=== PATIENT | male | born 1960 | race Caucasian/White ===

== ENCOUNTER 2019-09-06 06:23 | Inpatient (IN) | payer BC, OTHER ==
[~2019-09-06] VITALS: Ht 180.3 cm; Wt 104.2 kg
[2019-09-06 06:46] LABS: Basophils # (auto) 0 10 ^3/uL (0-0.2); Basophils % (auto) 0.4 % (0.0-2.0); Eosinophils # (auto) 0.2 10 ^3/uL (0-0.8); Eosinophils % (auto) 1.7 % (0.0-7.0); Hematocrit 49.5 % (41.0-53.0); Hemoglobin 16.7 g/dL (13.5-17.5); Lymphocytes # (auto) 1.6 10 ^3/uL (0.4-5.4); Lymphocytes % (auto) 16.3 % (10.0-50.0); Mean Corpuscular Hemoglobin 32.5 pg (28.0-32.0); Mean Corpuscular Hgb Conc. 33.7 g/dL (32.0-36.0); Mean Corpuscular Volume 96.3 fL (80.0-100.0); Monocytes # (auto) 0.9 10 ^3/uL (0-1.3); Neutrophils # (auto) 7.3 10 ^3/uL (1.6-8.6); Neutrophils % (auto) 72.6 % (37.0-80.0); Platelet Count (auto) 245 10^3/uL (140-450); Red Blood Cells 5.14 10^6/uL (4.5-5.90); Red Cell Distribution Width 13.8 % (11.8-14.3); White Blood Cell 10.1 10^3/uL (4.4-10.8)
[2019-09-06] MEDS ORDERED: MORPHINE SULF INJ 2 MG/ML SYRINGE 1ML ONE (06:54)
[2019-09-06] MEDS ORDERED: HEPARIN SODIUM (PORCINE) 5000 UNITS/ML 1ML VIAL ONE ×2 (06:54→07:22)
[2019-09-06] MEDS ORDERED: HEPARIN SODIUM (PORCINE) 5000 UNITS/ML 1ML VIAL IV ONE (07:00)
[2019-09-06 07:02] LABS: INR 0.99 (0.9-1.15); Partial Thromboplastin Time 27.1 sec (23.64-32.05)
[2019-09-06 07:09] LABS: Albumin 3.8 g/dL (3.4-5.0); Calcium 8.5 mg/dL (8.5-10.1); Magnesium 2.4 mg/dL (1.6-2.6); Potassium 3.8 mmol/L (3.5-5.1)
[2019-09-06 07:15] LABS: BUN/Creatinine Ratio 20.6; Bilirubin, Total 0.6 mg/dL (0.2-1.0); Total Protein 7.3 g/dL (6.4-8.2)
[2019-09-06] MEDS ORDERED: MORPHINE SULF INJ 2 MG/ML SYRINGE 1ML IV ONE (07:15)
[2019-09-06] MEDS ORDERED: IOHEXOL 350 MG/ML 100ML IJ ONE ×3 (07:16→08:26)
[2019-09-06] MEDS ORDERED: LIDOCAINE 2%HCL (LOCAL ANESTH.) INJ 20ML MDV ONE (07:16)
[2019-09-06] MEDS ORDERED: HEPARIN IN NS 1000Units/500mL 1,500 ML ONE (07:16)
[2019-09-06] MEDS ORDERED: fentaNYL CITRATE 100 MCG/2 ML VL ONE (07:21)
[2019-09-06] MEDS ORDERED: VERAPAMIL 2.5MG/ML INJ 2ML VIAL IV ONE (07:21)
[2019-09-06] MEDS ORDERED: MIDAZOLAM HCL 1MG/1ML-2 ML VIAL ONE (07:21)
[2019-09-06] MEDS ORDERED: ANGIOMAX 250 MG VIAL IV ONE ×2 (07:21→08:35)
[2019-09-06] MEDS ORDERED: NITROGLYCERIN 50MG/250ML 250 ML IV ONE (07:22)
[2019-09-06] MEDS ORDERED: SODIUM CHL 0.9% 50 ML ONE ×2 (07:22→08:35)
[2019-09-06] MEDS ORDERED: EPTIFIBATIDE INJ (2MG/ML) 10ML VIAL IV ONE (08:00)
[2019-09-06] MEDS ORDERED: TICAGRELOR 90 MG TAB ONE (08:31)
[2019-09-06] MEDS ORDERED: ONDANSETRON HCL 4 MG/2 ML VIAL IV PRN (09:15)
[2019-09-06] MEDS ORDERED: MORPHINE SULF INJ 2 MG/ML SYRINGE 1ML IV PRN (09:15)
[2019-09-06] MEDS ORDERED: SOD CHL 0.45% 1,000 ML IV ONE (09:15)
[2019-09-06] MEDS ORDERED: NITROGLYCERIN 0.4 MG SL TAB SL PRN (09:15)
[2019-09-06] MEDS ORDERED: HYDROcodone-ACET 5/325MG TAB PO PRN (09:15)
[2019-09-06] MEDS: TICAGRELOR 90 MG TAB PO SCH ×2 (10:00→21:55)
[2019-09-06] MEDS ORDERED: METOPROLOL TARTRATE 25 MG TAB PO SCH ×2 (10:00)
[2019-09-06] MEDS: ASPirin 81 mg TAB PO SCH (10:00)
--- NOTE | 2019-09-06 10:11 | NUR ---
Report Received report from Paralegal RNCastro.
--- NOTE | 2019-09-06 10:28 | NUR ---
Patient Arrived Patient arrived to unit. No signs of distress at this time, patient is AOx4, respirations even and unlabored, 2L nasal cannula. Safety precautions in place. Incision site is soft with no sign of hematoma at this time, dressing is dry and intact, will continue to monitor. Per Senior Sas Developer Rn, patient will be able to stand at 10:45.
[2019-09-06 10:46] LABS: Basophils # (auto) 0 10 ^3/uL (0-0.2); Basophils % (auto) 0.3 % (0.0-2.0); Eosinophils # (auto) 0 10 ^3/uL (0-0.8); Eosinophils % (auto) 0.3 % (0.0-7.0); Hematocrit 48.9 % (41.0-53.0); Hemoglobin 16.3 g/dL (13.5-17.5); Lymphocytes % (auto) 9.7 % (10.0-50.0); Mean Corpuscular Hemoglobin 32.3 pg (28.0-32.0); Mean Corpuscular Hgb Conc. 33.2 g/dL (32.0-36.0); Mean Corpuscular Volume 97.2 fL (80.0-100.0); Monocytes # (auto) 0.6 10 ^3/uL (0-1.3); Monocytes % (auto) 5.6 % (0.0-12.0); Neutrophils # (auto) 8.7 10 ^3/uL (1.6-8.6); Neutrophils % (auto) 84.1 % (37.0-80.0); Nucleated Red Blood Cells % 0.1 %; Platelet Count (auto) 243 10^3/uL (140-450); Red Blood Cells 5.03 10^6/uL (4.5-5.90); Red Cell Distribution Width 13.6 % (11.8-14.3); White Blood Cell 10.3 10^3/uL (4.4-10.8)
[2019-09-06 10:49] VITALS: BP 146/84
[2019-09-06] MEDS: PANTOPRAZOLE 40 MG/10 ML VIAL INJ IV SCH (11:15)
--- NOTE | 2019-09-06 11:36 | NUR ---
Critical Lab Values Received call from Namita regarding troponin levels. Will notify
--- NOTE | 2019-09-06 11:38 | NUR ---
Called to report critical lab values.
--- NOTE | 2019-09-06 11:49 | NUR ---
Left message Left message with Sarah. Per Sarah singh MD.
[2019-09-06 12:35] VITALS: BP 163/93
[2019-09-06] MEDS ORDERED: LOSA25TA38 PO (13:11)
--- NOTE | 2019-09-06 13:20 | NUR ---
Left message with Dr. Jose Marks regarding labs. Addendum: 09/06/19 at 1325 by SHAHRZAD ALVAREZ RN RN Patient shows no signs of distress at this time, denies any chest pain. HR 62 BP 121/85. Will continue to monitor.
--- NOTE | 2019-09-06 13:55 | NUR ---
Run of V Tach Patient had a run of v tach 10 beats. VS are as follows:BP 144/85, HR 71, SpO2 96% on room air, RR 18. Patient shows no signs of distress, denies chest pain at this time. Will continue to monitor.
--- NOTE | 2019-09-06 14:00 | NUR ---
MD Notified MD aware of run of v tach and most recent set of vital signs. New orders received, will continue to monitor.
--- NOTE | 2019-09-06 15:11 | NUR ---
Notified Notified Dr. Jose Marks regarding troponin levels.
--- NOTE | 2019-09-06 15:41 | NUR ---
Notified MD Notified MD of run of V tach 5 beats. VS are as follows: 125/85, HR 75, RR 16, SpO2 95% on room air.
--- NOTE | 2019-09-06 16:04 | NUR ---
New orders received.
[2019-09-06] MEDS ORDERED: AMIODARONE HCL 150 MG in D5W 5% 100 ML IV ONE (16:15)
[2019-09-06 16:58] VITALS: BP 125/85
[2019-09-06] MEDS ORDERED: MAGNESIUM SULFATE 1GM/100ML 100 ML IV SCH (17:00)
[2019-09-06 17:20] VITALS: BP 146/89
--- NOTE | 2019-09-06 17:20 | NUR ---
Amiodarone Completed Per MD orders, amiodarone administered, see EMAR. Starting vital signs: RR 18, 100% SpO2 on room air, HR 74bpm, BP 147/84. End of Infusion Vital Signs: RR 18, Spo2 97% on room air, HR 75 bpm, BP 146/89. No signs of distress at this time, respirations even and unlabored. Safety precautions in place, will continue to monitor.
--- NOTE | 2019-09-06 17:28 | NUR ---
Discharge Discharge instructions given as ordered. Encourage to follow up with PMD as instructed. All questions and concerns addressed. Patient verbalized understanding. Medication reconciliation form completed and copy given to patient. IV removed with catheter intact, pressure dressing applied. Telemetry unit returned to ICU. Patient taken to vehicle via wheelchair with all personal belongings, accompanied by staff. No distress noted at time of departure. Patient received information regarding post discharge follow up appointment and home HD program/clinic training information per Dr. Hammond request-also given phone number provided by [phone] and instructed to show up 30 minutes early per PATRICK Kuhn instruction. Addendum: 09/06/19 at 1736 by SHAHRZAD ALVAREZ RN RN WRONG PATIENT
[2019-09-06] MEDS: MAGNESIUM SULFATE 1GM/100ML 100 ML IV SCH ×3 (19:19→21:55)
--- NOTE | 2019-09-06 19:19 | NUR ---
Closing Note Report given to [facility] RN, [place]. Patient currently sitting up in bed resting with eyes closed, patient is easy to arouse, respirations even and unlabored on 2L nasal cannula. Safety precautions in place, no signs of distress.
--- NOTE | 2019-09-06 19:20 | NUR ---
OPENING NOTE Received report from day shift RN. Patient is A&O X's 4 with no s/s of distress noted and reports no pain. Right groin gauze is C/D/I and area is soft to touch. Patient denies pain. Educated patient on POC and to use call light when in need of assistance. Patient verbalized understanding. Bed is in lowest/locked position with side rails up X's 2 and call light is within reach of patient. Will continue care.
[2019-09-06] MEDS: ATORVASTATIN 20 MG TAB PO SCH (21:56)
[2019-09-06] MEDS: AMIODARONE HCL 200 MG TAB PO SCH (21:56)
[2019-09-06] MEDS: METOPROLOL TARTRATE 25 MG TAB PO SCH (21:57)
[2019-09-06 22:00] VITALS: BP 130/77
[2019-09-07 04:49] VITALS: BP 116/65
[2019-09-07 05:00] VITALS: BP 121/72
[2019-09-07 06:25] LABS: Calcium 8.3 mg/dL (8.5-10.1)
[2019-09-07 06:45] LABS: BUN/Creatinine Ratio 16.5
--- NOTE | 2019-09-07 07:30 | NUR ---
RECEIVED REPORT FROM NIGHT NURSE. PATIENT RESTING IN BED, NO DISTRESS NOTED. WILL CONTINUE TO MONITOR.
--- NOTE | 2019-09-07 07:34 | NUR ---
CRITICAL TROPONIN 65.5. MD aware of high troponin levels. Value decreasing. Day shift RN aware.
--- NOTE | 2019-09-07 07:36 | NUR ---
CLOSING NOTE Patient is currently sitting up in bed on the phone. Patient shows no s/s of distress and reports no pain. safety precautions are in place.
[2019-09-07 09:00] VITALS: BP 128/73
[2019-09-07] MEDS: TICAGRELOR 90 MG TAB PO SCH ×2 (11:42→22:18)
[2019-09-07] MEDS: PANTOPRAZOLE 40 MG/10 ML VIAL INJ IV SCH (11:42)
[2019-09-07] MEDS: ASPirin 81 mg TAB PO SCH (11:43)
[2019-09-07] MEDS: AMIODARONE HCL 200 MG TAB PO SCH ×2 (11:43→22:17)
[2019-09-07] MEDS: METOPROLOL TARTRATE 25 MG TAB PO SCH ×2 (11:43→22:18)
[2019-09-07 13:00] VITALS: BP 117/73
[2019-09-07 17:00] VITALS: BP 97/68
--- NOTE | 2019-09-07 19:45 | NUR ---
OPENING NOTE Received report from day shift RN. Patient is A&O X's 4 with no s/s of distress and reports no pain. Educated patient on POC and to use call light when in need of assistance. Patient verbalized understanding. Bed is in lowest/locked position with side rails up X's 2 and call light is within reach of patient. Will continue care. Patient to be NPO at midnight. Patient verbalized understanding.
[2019-09-07 22:00] VITALS: BP 129/76
[2019-09-07] MEDS: ATORVASTATIN 20 MG TAB PO SCH (22:17)
--- NOTE | 2019-09-08 | NUR ---
PATIENT NPO Patient verbalized understanding. Fluids removed from bedside table
[2019-09-08 06:00] VITALS: BP 121/74
--- NOTE | 2019-09-08 07:30 | NUR ---
OPENING SHIFT NOTE ASSUMED CARE OF PATIENT AWAKE AND ALERT. NO S/S OF DISTRESS NOTED OR COMPLAINTS OF PAIN. PATIENT UPDATED ON POC FOR THE DAY AND ALL QUESTIONS ANSWERED. BED IS IN LOWEST, LOCKED POSITION WITH SIDE RAILS UP X2 AND CALL LIGHT WITHIN REACH. WILL CONTINUE TO MONITOR Q1H AND PRN.
--- NOTE | 2019-09-08 08:00 | NUR ---
OFF UNIT PATIENT TAKEN TO SOIL FIELD TECHNICIAN FOR LHC PROCEDURE. NO S/S OF DISTRESS NOTED AT TIME OF DEPARTURE.
[2019-09-08] MEDS ORDERED: HEPARIN SODIUM (PORCINE) 5000 UNITS/ML 1ML VIAL ONE (08:30)
[2019-09-08] MEDS ORDERED: VERAPAMIL 2.5MG/ML INJ 2ML VIAL IV ONE (08:30)
[2019-09-08] MEDS ORDERED: ANGIOMAX 250 MG VIAL IV ONE ×2 (08:30→09:31)
[2019-09-08] MEDS ORDERED: fentaNYL CITRATE 100 MCG/2 ML VL ONE (08:31)
[2019-09-08] MEDS ORDERED: MIDAZOLAM HCL 1MG/1ML-2 ML VIAL ONE (08:31)
[2019-09-08] MEDS ORDERED: NITROGLYCERIN 50MG/250ML 250 ML IV ONE (08:44)
[2019-09-08 08:58] VITALS: BP 110/66
[2019-09-08] MEDS ORDERED: SODIUM CHL 0.9% 50 ML ONE (09:31)
[2019-09-08] MEDS ORDERED: ASPirin 81 mg TAB ONE (09:55)
[2019-09-08] MEDS ORDERED: TICAGRELOR 90 MG TAB ONE (09:56)
[2019-09-08] MEDS: PANTOPRAZOLE 40 MG/10 ML VIAL INJ IV SCH (10:00)
[2019-09-08] MEDS: AMIODARONE HCL 200 MG TAB PO SCH ×2 (10:00→21:32)
[2019-09-08] MEDS: METOPROLOL TARTRATE 25 MG TAB PO SCH ×2 (10:00→21:32)
[2019-09-08] MEDS: ASPirin 81 mg TAB PO SCH (10:09)
[2019-09-08] MEDS: TICAGRELOR 90 MG TAB PO SCH ×2 (10:09→21:33)
[2019-09-08] MEDS ORDERED: IOHEXOL 350 MG/ML 100ML IJ ONE (10:16)
[2019-09-08] MEDS ORDERED: LIDOCAINE 2%HCL (LOCAL ANESTH.) INJ 20ML MDV ONE (10:16)
--- NOTE | 2019-09-08 12:15 | NUR ---
RETURN TO UNIT PATIENT BROUGHT BACK UP FROM SUPERINTENDENT PIER. NO S/S OF DISTRESS NOTED. PATIENT HAS VASCBAND TO RIGHT WRIST. MINIMAL BLEEDING NOTED AT SITE, NO BRUISING. PATIENT HAS FULL ROM, SENSATION, AND CIRCULATION OF RIGHT HAND. SUPERINTENDENT PIER RN REMOVED 4L AIR BEFORE BRINGING PATIENT BACK TO HIS ROOM. WILL CONTINUE TO MONITOR.
[2019-09-08 13:00] VITALS: BP 116/73
--- NOTE | 2019-09-08 14:30 | NUR ---
VASCBAND VASCBAND REMOVED AFTER GRADUAL DEFLATION OF AIR. NO HEMATOMA OR OOZING NOTED AT SITE. CLEAR, OCCLUSIVE DRESSING APPLIED. WILL CONTINUE TO MONITOR.
[2019-09-08 17:00] VITALS: BP 123/80
--- NOTE | 2019-09-08 19:00 | NUR ---
OPENING NOTE Received report from day shift RN. Patient is A&O X's 4 with no s/s of distress and reports no pain. Educated patient on POC and to use call light when in need of assistance. Patient verbalized understanding. Dressing to right wrist and right groin are both C/D/I. Educated patient not to apply excessive pressure with wrists. Patient verbalized understanding. Bed is in lowest/locked position with side rails up X's 2 and call light is within reach of patient. Will continue care.
[2019-09-08] MEDS: ATORVASTATIN 20 MG TAB PO SCH (21:33)
[2019-09-08 22:00] VITALS: BP 120/82
[2019-09-09 05:00] VITALS: BP 99/69
[2019-09-09] MEDS ORDERED: CLOPIDOGREL 300 MG TAB PO ONE (08:00)
--- NOTE | 2019-09-09 08:00 | NUR ---
Opening Shift Note Assumed care of patient, awake, alert, and oriented. No S/S of distress/SOB or pain. Bed in lowest/locked position, bed rails upx2, call light within reach. Instructed on POC and to call for assist PRN. Will continue to monitor for changes Q1hr and PRN.
[2019-09-09] MEDS: TICAGRELOR 90 MG TAB PO SCH (08:43)
[2019-09-09 09:00] VITALS: BP 109/68
[2019-09-09] MEDS: PANTOPRAZOLE 40 MG/10 ML VIAL INJ IV SCH (09:23)
[2019-09-09] MEDS: METOPROLOL TARTRATE 25 MG TAB PO SCH (09:24)
[2019-09-09] MEDS: ASPirin 81 mg TAB PO SCH (09:24)
[2019-09-09] MEDS: AMIODARONE HCL 200 MG TAB PO SCH (09:24)
[2019-09-09 13:00] VITALS: BP 124/80
--- NOTE | 2019-09-09 15:24 | NUR ---
Discharge instructions given as ordered. Encourage to follow up with PMD as instructed. All questions and concerns addressed. Patient verbalized understanding. IV removed with catheter intact, pressure dressing applied. Telemetry unit returned to ICU. Patient taken to vehicle via wheelchair with all personal belongings, accompanied by staff . No distress noted at time of departure.
== END 2019-09-09 15:30 | disposition home or self-care (01) | DRG 247 ==
LOC: EDBD 06:23 → ER 06:23 → CATH 1 07:41 → TELE-WESTW 07:42
PROVIDERS: ADMIT Specialist; ATTEND Specialist
PROC: 4A023N7 Measurement of Cardiac Sampling and Pressure, Left Heart, Percutaneous Approach (ICD-10-PCS; principal; 2019-09-06)
PROC: 02C13ZZ Extirpation of Matter from Coronary Artery, Two Arteries, Percutaneous Approach (ICD-10-PCS; 2019-09-06)
PROC: 027034Z Dilation of Coronary Artery, One Artery with Drug-eluting Intraluminal Device, Percutaneous Approach (ICD-10-PCS; 2019-09-06)
PROC: 3E07317 Introduction of Other Thrombolytic into Coronary Artery, Percutaneous Approach (ICD-10-PCS; 2019-09-06)
PROC: B41F1ZZ Fluoroscopy of Right Lower Extremity Arteries using Low Osmolar Contrast (ICD-10-PCS; 2019-09-06)
PROC: B2111ZZ Fluoroscopy of Multiple Coronary Arteries using Low Osmolar Contrast (ICD-10-PCS; 2019-09-06)
PROC: 02703ZZ Dilation of Coronary Artery, One Artery, Percutaneous Approach (ICD-10-PCS; 2019-09-06)
PROC: 027034Z Dilation of Coronary Artery, One Artery with Drug-eluting Intraluminal Device, Percutaneous Approach (ICD-10-PCS; 2019-09-08)
PROC: 4A023N7 Measurement of Cardiac Sampling and Pressure, Left Heart, Percutaneous Approach (ICD-10-PCS; 2019-09-08)
PROC: B2111ZZ Fluoroscopy of Multiple Coronary Arteries using Low Osmolar Contrast (ICD-10-PCS; 2019-09-08)
PROC: 03HY32Z Insertion of Monitoring Device into Upper Artery, Percutaneous Approach (ICD-10-PCS; 2019-09-08)
DX: I21.19 ST elevation (STEMI) myocardial infarction involving other coronary artery of inferior wall (principal); I47.2 Ventricular tachycardia; I10 Essential (primary) hypertension; Z82.49 Family history of ischemic heart disease and other diseases of the circulatory system
CPT/HCPCS: 36415; 71045; 75710; 80048; 80053; 83735; 83880; 84484; 85025; 85610; 85730; 86850; 86900; 86901; 92924; 92928; 92933; 92975; 93005; 93452; 93458; 96365; 99152; 99153; C1874; C9113; G0378; J2250; J7060

== ENCOUNTER 2021-07-03 16:17 | Inpatient (IN) | payer BC ==
[~2021-07-03] VITALS: Ht 182.9 cm; Wt 96.7 kg
[~2021-07-03 16:17] MED LIST: LOSA25TA38 PO
[2021-07-03] MEDS ORDERED: PANTOPRAZOLE 40 MG/10 ML VIAL INJ IV ONE (16:45)
[2021-07-03 18:18] LABS: Basophils # (auto) 0 10 ^3/uL (0-0.2); Basophils % (auto) 0.3 % (0.0-2.0); Eosinophils # (auto) 0.1 10 ^3/uL (0-0.8); Eosinophils % (auto) 0.4 % (0.0-7.0); Hematocrit 26.6 % (41.0-53.0); Lymphocytes # (auto) 1.5 10 ^3/uL (0.4-5.4); Lymphocytes % (auto) 9.4 % (10.0-50.0); Mean Corpuscular Hemoglobin 32.6 pg (28.0-32.0); Mean Corpuscular Hgb Conc. 34.1 g/dL (32.0-36.0); Mean Corpuscular Volume 95.6 fL (80.0-100.0); Monocytes # (auto) 0.8 10 ^3/uL (0-1.3); Monocytes % (auto) 5.1 % (0.0-12.0); Neutrophils # (auto) 13.3 10 ^3/uL (1.6-8.6); Neutrophils % (auto) 84.8 % (37.0-80.0); Red Blood Cells 2.78 10^6/uL (4.5-5.90); Red Cell Distribution Width 13.2 % (11.8-14.3); White Blood Cell 15.7 10^3/uL (4.4-10.8)
[2021-07-03 18:35] LABS: Albumin 2.8 g/dL (3.4-5.0); BUN/Creatinine Ratio 46.9; Calcium 8.2 mg/dL (8.5-10.1); Magnesium 2.1 mg/dL (1.6-2.6); Potassium 3.5 mmol/L (3.5-5.1)
[2021-07-03 18:38] LABS: Bilirubin, Total 0.4 mg/dL (0.2-1.0); Total Protein 5.4 g/dL (6.4-8.2)
[2021-07-03 18:41] LABS: INR 1.05 (0.9-1.15); Partial Thromboplastin Time 21.5 sec (23.6-33.0)
[2021-07-04] MEDS ORDERED: ONDANSETRON HCL 4 MG/2 ML VIAL IV PRN (01:00)
[2021-07-04] MEDS: D5W/SOD CHLO 0.9% 1,000 ML IV SCH ×3 (01:19→21:42)
[2021-07-04 01:54] LABS: Hematocrit 24.5 % (41.0-53.0); Hemoglobin 8.5 g/dL (13.5-17.5)
[2021-07-04] MEDS: PANTOPRAZOLE 40 MG/10 ML VIAL INJ IV SCH ×2 (10:00→21:24)
[2021-07-04 12:00] VITALS: BP 110/66
[2021-07-04] MEDS ORDERED: ATOR-47 PO (12:41)
[2021-07-04] MEDS ORDERED: ASPI1TAB20 PO (12:41)
[2021-07-04] MEDS ORDERED: METO25TA5 PO (12:42)
[2021-07-04] MEDS ORDERED: CLOP75TA70 PO (12:42)
[2021-07-04] MEDS ORDERED: PANT1INJ3 IV (12:43)
[2021-07-04 13:00] VITALS: BP 107/62
[2021-07-04 16:57] VITALS: BP 116/63
[2021-07-04] MEDS: SUCRALFATE 1 GM TAB PO SCH ×2 (17:03→21:24)
[2021-07-04 22:00] VITALS: BP 114/64
[2021-07-05 05:00] VITALS: BP 113/72
[2021-07-05 05:28] LABS: Urine Bacteria NONE SEEN /hpf (None Seen); Urine Blood Negative /uL (Negative); Urine Specific Gravity 1.015 (1.001-1.035); Urine WBC 3 /hpf (0 - 3)
[2021-07-05 06:47] LABS: Basophils # (auto) 0 10 ^3/uL (0-0.2); Eosinophils # (auto) 0.2 10 ^3/uL (0-0.8); Eosinophils % (auto) 2.7 % (0.0-7.0); Monocytes # (auto) 0.5 10 ^3/uL (0-1.3); Nucleated Red Blood Cells % 0.1 %
[2021-07-05 06:50] LABS: Basophils % (auto) 0.3 % (0.0-2.0); Hematocrit 21.9 % (41.0-53.0); Hemoglobin 7.8 g/dL (13.5-17.5); Lymphocytes # (auto) 1.8 10 ^3/uL (0.4-5.4); Lymphocytes % (auto) 27.8 % (10.0-50.0); Mean Corpuscular Hemoglobin 33.9 pg (28.0-32.0); Mean Corpuscular Hgb Conc. 35.5 g/dL (32.0-36.0); Mean Corpuscular Volume 95.5 fL (80.0-100.0); Monocytes % (auto) 7.4 % (0.0-12.0); Neutrophils % (auto) 61.8 % (37.0-80.0); Red Cell Distribution Width 13.4 % (11.8-14.3); White Blood Cell 6.5 10^3/uL (4.4-10.8)
[2021-07-05] MEDS: SUCRALFATE 1 GM TAB PO SCH ×4 (07:00→21:34)
[2021-07-05 07:02] LABS: Potassium 3.5 mmol/L (3.5-5.1)
[2021-07-05 07:10] LABS: Albumin 2.5 g/dL (3.4-5.0); BUN/Creatinine Ratio 16.5; Bilirubin, Total 0.4 mg/dL (0.2-1.0); Calcium 7.9 mg/dL (8.5-10.1); Total Protein 4.8 g/dL (6.4-8.2)
[2021-07-05] MEDS ORDERED: LIDOCAINE VISCOUS 2% 15ML UD ONE (08:29)
[2021-07-05] MEDS ORDERED: diphenhdrAMINE HCL 50 MG/1 ML VL ONE (08:29)
[2021-07-05] MEDS ORDERED: fentaNYL CITRATE 100 MCG/2 ML VL ONE (08:29)
[2021-07-05] MEDS ORDERED: MIDAZOLAM HCL 5 MG/ML-1ML VIAL ONE (08:29)
[2021-07-05] MEDS ORDERED: SODIUM CHLORIDE LOCK 10 ML ONE (08:29)
[2021-07-05 09:00] VITALS: BP 111/69
[2021-07-05] MEDS: PANTOPRAZOLE 40 MG/10 ML VIAL INJ IV SCH ×2 (09:27→21:34)
[2021-07-05 13:00] VITALS: BP 113/62
[2021-07-05 22:00] VITALS: BP 114/70
[2021-07-06 05:00] VITALS: BP 114/72
[2021-07-06 05:49] LABS: Hematocrit 21.2 % (41.0-53.0)
[2021-07-06 05:53] LABS: Hemoglobin 7.7 g/dL (13.5-17.5)
[2021-07-06] MEDS: SUCRALFATE 1 GM TAB PO SCH ×2 (06:50→12:37)
[2021-07-06 09:00] VITALS: BP 130/77
[2021-07-06] MEDS: PANTOPRAZOLE 40 MG/10 ML VIAL INJ IV SCH (10:10)
[2021-07-06] MEDS ORDERED: MET25T PO (11:48)
[2021-07-06] MEDS ORDERED: SUCR1TAB22 PO (11:48)
[2021-07-06] MEDS ORDERED: PANT40TA2 PO (11:48)
[2021-07-06 13:00] VITALS: BP 123/71
== END 2021-07-06 14:40 | disposition home or self-care (01) | DRG 380 ==
LOC: EDBD 16:17 → ER 16:17 → OVERFLOW 07-04 00:56 → WEST WING 07-04 08:45
PROVIDERS: ADMIT Nurse Practitioner; ATTEND Internal Medicine
PROC: 0DB68ZX Excision of Stomach, Via Natural or Artificial Opening Endoscopic, Diagnostic (ICD-10-PCS; 2021-07-05)
PROC: 0DB98ZX Excision of Duodenum, Via Natural or Artificial Opening Endoscopic, Diagnostic (ICD-10-PCS; principal; 2021-07-05 12:40)
DX: K22.11 Ulcer of esophagus with bleeding (principal); E43 Unspecified severe protein-calorie malnutrition; R65.10 Systemic inflammatory response syndrome (SIRS) of non-infectious origin without acute organ dysfunction; D50.0 Iron deficiency anemia secondary to blood loss (chronic); K29.91 Gastroduodenitis, unspecified, with bleeding; K29.71 Gastritis, unspecified, with bleeding; I10 Essential (primary) hypertension; I25.10 Atherosclerotic heart disease of native coronary artery without angina pectoris; K44.9 Diaphragmatic hernia without obstruction or gangrene; Z20.822 Contact with and (suspected) exposure to COVID-19; Z88.5 Allergy status to narcotic agent; Z82.49 Family history of ischemic heart disease and other diseases of the circulatory system; Z95.5 Presence of coronary angioplasty implant and graft; I25.2 Old myocardial infarction; Z68.28 Body mass index [BMI] 28.0-28.9, adult
CPT/HCPCS: 36415; 70450; 74176; 80053; 81001; 82270; 83735; 84132; 84484; 85014; 85018; 85025; 85610; 85730; 86850; 86900; 86901; 96374; C9113; G0378; J2250